=== PATIENT | female | born 1975 | race African-American/Black ===

== ENCOUNTER 2020-02-08 18:23 | Emergency (ER) | payer OTHER ==
[~2020-02-08] VITALS: Ht 165.1 cm; Wt 66.0 kg
[2020-02-08 18:48] VITALS: BP 147/94
== END 2020-02-08 19:35 | disposition home or self-care (01) ==
LOC: ER 18:23
DX: H66.92 Otitis media, unspecified, left ear (principal); J20.9 Acute bronchitis, unspecified
CPT/HCPCS: 99281; 99283